=== PATIENT | female | born 1995 | race Caucasian/White ===

== ENCOUNTER → 2018-04-19 | Emergency (ER) | payer OTHER ==
[~2018-04-19] VITALS: Ht 160 cm; Wt 49.0 kg
[~2018-04-19] MED LIST: BACTRIM DS TAB1 EACH PO; BENADRYL25 MG PO; KETO10TA2 PO; MEDROL4 MG PO; MOTRIN IB200 MG
== END | disposition home or self-care (01) ==
LOC: ER 23:40
DX: N30.80 Other cystitis without hematuria (principal); R10.32 Left lower quadrant pain

== ENCOUNTER 2020-10-04 18:41 | Emergency (ER) | payer OTHER ==
[~2020-10-04] VITALS: Ht 160 cm; Wt 49.0 kg
== END 2020-10-04 23:50 | disposition home or self-care (01) ==
LOC: ER 18:41
DX: S93.492A Sprain of other ligament of left ankle, initial encounter (principal); S93.491A Sprain of other ligament of right ankle, initial encounter; S93.692A Other sprain of left foot, initial encounter; S93.691A Other sprain of right foot, initial encounter; W18.39XA Other fall on same level, initial encounter; Y93.89 Activity, other specified; Y92.832 Beach as the place of occurrence of the external cause; Y99.8 Other external cause status

== ENCOUNTER 2022-04-16 11:03 | Emergency (ER) | payer OTHER ==
[~2022-04-16] VITALS: Ht 160 cm; Wt 46.7 kg
[2022-04-16] MEDS ORDERED: ALBUTEROL2.5 MG/3 M IH (14:43)
[2022-04-16] MEDS ORDERED: BUDESONIDE0.5 MG/2 M IH (14:43)
== END 2022-04-16 14:51 | disposition home or self-care (01) ==
LOC: ER 11:03
DX: J40 Bronchitis, not specified as acute or chronic (principal); Z86.16 Personal history of COVID-19; Z20.822 Contact with and (suspected) exposure to COVID-19

== ENCOUNTER 2022-04-27 06:01 | Emergency (ER) | payer OTHER ==
[~2022-04-27] VITALS: Ht 160 cm; Wt 47.6 kg
[~2022-04-27 06:01] MED LIST changes: +ALBUTEROL2.5 MG/3 M IH; +BUDESONIDE0.5 MG/2 M IH
== END 2022-04-27 11:53 | disposition home or self-care (01) ==
LOC: ER 06:01
DX: B34.9 Viral infection, unspecified (principal)

== ENCOUNTER 2023-03-22 17:42 | Emergency (ER) | payer OTHER ==
[~2023-03-22] VITALS: Ht 160 cm; Wt 48.1 kg
== END 2023-03-22 21:33 | disposition home or self-care (01) ==
LOC: ER 17:42
PROVIDERS: Emergency Medicine
DX: J40 Bronchitis, not specified as acute or chronic (principal); Z20.822 Contact with and (suspected) exposure to COVID-19

== ENCOUNTER 2024-07-25 03:27 | Emergency (ER) | payer OTHER ==
[~2024-07-25] VITALS: Ht 160 cm; Wt 47.6 kg
[2024-07-25] MEDS ORDERED: AZITHROMYCIN 500 MG TABLET PO STA (05:30)
[2024-07-25] MEDS ORDERED: NEOMYCIN/POLYMYXIN B/HYDROCORT 20 DR/ML BOTTLE OT STA (05:30)
[2024-07-25] MEDS ORDERED: GUAIFENESIN 200 MG/10 ML BLIST.PACK PO STA (05:31)
[2024-07-25] MEDS ORDERED: AZITHROMYCIN 500 MG TABLET PO ONE (05:31)
[2024-07-25] MEDS ORDERED: KETOROLAC TROMETHAMINE 10 MG TABLET PO STA (05:31)
[2024-07-25] MEDS ORDERED: KETOROLAC TROMETHAMINE 10 MG TABLET PO ONE (05:33)
[2024-07-25] MEDS ORDERED: NEOMYCIN/POLYMYXIN B/HYDROCORT 20 DR/ML BOTTLE OT ONE (05:34)
[2024-07-25] MEDS ORDERED: GUAIFENESIN 200 MG/10 ML BLIST.PACK PO ONE (05:34)
[2024-07-25] MEDS ORDERED: PHENAGIL TABLE1 EACH PO (05:35)
[2024-07-25] MEDS ORDERED: ZITHROMAX500 MG PO (05:35)
[2024-07-25] MEDS ORDERED: ZYNCOF 20-400120 ML PO (05:35)
== END 2024-07-25 05:43 ==
LOC: ER 03:29
DX: R53.81 Other malaise (principal); A49.3 Mycoplasma infection, unspecified site